=== PATIENT | female | born 1965 | race Caucasian/White ===

== ENCOUNTER 2023-09-09 11:19 | Emergency (ER) | payer OTHER, SELFPAY ==
[2023-09-09 11:21] VITALS: BP 116/89
[2023-09-09] MEDS: VALIUM 5 MG PO (12:18)
[2023-09-09] MEDS: TORADOL 15 MG IM (12:19)
[2023-09-09] MEDS: LIDOCAINE 4% PATCH 1 PATCH TOPICAL (12:19)
--- NOTE | 2023-09-09 12:19 | ED.GENMED ---
History of Present Illness
General
Chief Complaint: Back Pain
Source: patient
Time Seen by Provider: 09/09/23 11:58
Travel History
Have you had any contact with someone who has COVID-19?: No
Do you have any symptoms of coronavirus? Fever > 100 degrees, chills, cough, shortness of breath, sore throat, loss of taste or smell, muscle aches, or headache?: No
History of Present Illness
History of Present Illness:
58-year-old female with past medical history of CAD, hypertension, hyperlipidemia, MS presenting to the emergency department for evaluation of lower back pain that she admits has been going on for a few months but since Monday/ has been
having significantly increased pain, yesterday was unable to get out of bed due to the pain prompting her to come to the ER today. Patient does note she felt a little bit better this morning and her pain continues to feel improved after taking some
naproxen around 8 AM this morning. She notes a history of some longstanding back pain due to a previous left femur injury and has typically followed with a chiropractor for this. She notes that she moved to the area within the last year or so and
attributes a lot of her back pain to having to go up many stairs at the home she lives in. Denies any fevers, bowel or urinary incontinence, saddle anesthesia, focal weakness or numbness, falls or traumatic injury, abnormal weight loss, cancer
history or diabetes. Social history noncontributory. Denies history of IV drug abuse
Past History
Past History
ED Past Medical History: CAD, HTN, Hypercholesterolemia and Other (MS)
ED Past Surgical History: Cardiac, Orthopedic and Other
Social History
Tobacco: Non-smoker
Alcohol: Occasional
Drug: None
Personal: Single
Living: with family
Review of Systems
Review of Systems
All Other Systems: ROS reviewed and negative except as documented in HPI and ROS
Phy Exam
Physical Exam
Physical Exam:
GENERAL: Alert , in no apparent distress at rest but does appear uncomfortable with movement
EYE: clear conjunctiva b/l
NECK: Supple
ENT: o/p clr, mmm.
ABDOMEN: Soft, without focal tenderness, no r/g, no cvat
BACK: Limited range of motion secondary to pain, tenderness within the left paralumbar region, no midline bony tenderness, no rashes
NEUROLOGICAL: Alert and oriented, no focal neuro deficits. Patellar deep tendon reflexes intact and equal bilaterally, sensation grossly intact and equal to light touch bilateral lower extremities
SKIN: Warm and dry, skin intact.
MUSCULOSKELETAL: No edema, well perfused. EHL intact bilaterally
PSYCH: Normal and appropriate interaction.
Scores
Heart Failure Risk
Heart Failure Risk Score: Not Applicable
Heart Score for Chest Pain Patients
STEMI patient?: Not applicable
Withdrawal Assessment of Alcohol
Withdrawal Assessment Completed?: Not applicable
Course
Orders/Labs/Results
Orders:
Orders
09/09/23 12:09
Diazepam [Valium] 5 mg PO NOW STA
Ketorolac [Toradol] 15 mg IM NOW STA
Lidocaine [Lidocaine 4% Patch] 1 patch TOPICAL NOW STA
CR Lumbar Spine Comp Min 4 Vw* Urgent
Comment:
Reason For Exam: left lower back pain
Vital Signs
Initial and Last Documented VS:
Initial Vital Signs
Temp Pulse Resp BP Pulse Ox
99.4 F 95 18 116/89 97
09/09/23 11:21 09/09/23 11:21 09/09/23 11:21 09/09/23 11:21 09/09/23 11:21
Last Documented Vital Signs
Temp Pulse Resp BP Pulse Ox
99.4 F 95 18 116/89 97
09/09/23 11:21 09/09/23 11:21 09/09/23 11:21 09/09/23 11:21 09/09/23 11:21
MDM/Problems Addressed
Differential Diagnosis Includes:
Lumbar strain, spinal stenosis, sciatica, disc herniation/nerve impingement, no signs or symptoms to be suggestive of infectious etiology nor acute neurological compromise. No symptoms to be suggestive of renal/ureteral colic
MDM/Problems Addressed:
58-year-old female presenting to emergency ferment for evaluation of back pain that has been gradually worsening over the last few months, acutely worse over the last 48 hours, yesterday unable to get out of bed. Today symptoms do seem somewhat
improved. No signs or symptoms suggestive of infectious etiology or neurological compromise. Will obtain x-ray to further evaluate. Treatment with Toradol, Valium, Lidoderm patch. Reassessment following
*Radiology
Radiology exam reviewed: preliminary read by ED provider (Mild degenerative changes)
*Pulse Oximetry
Patient hypoxic: no
*Critical Care Note
Total Time (30-74mins, 75-104mins- exclusive of procedures): Not Applicable
Patient Management
Escalation/DeEscalation of care consider admission/obs:
X-ray showing mild degenerative changes but otherwise no acute fracture or malalignment. Prescriptions for muscle relaxant, steroid taper and topical Lidoderm patch. Information for outpatient follow-up provided. Stable for discharge home.
ED Attending Note
-
Portions of this chart may have been created with voice recognition software.� Occasional wrong word or��sound alike� substitutions may have occurred due to the inherent limitations of voice recognition software.
Discharge Plan
Departure
Patient Disposition: Home (Routine Discharge)
Date of Disposition: 09/09/23
Time of Disposition: 13:03
Patient with high blood pressure during this ER visit?: No
Discharge Problem:
Low back pain
Instructions: Low Back Pain (DC)
Prescriptions:
New
diazepam [Valium] 5 mg tablet
5 mg PO BID PRN (Reason: muscle spasm) Qty: 10 0RF
methylprednisolone [Medrol (Leif)] 4 mg tablets,dose pack
4 mg PO DIRECTED Qty: 21 0RF
lidocaine [Lidoderm] 5 % adhesive patch,medicated
1 patch topical DAILY Qty: 30 0RF
Referrals:
Santos Hanson MD [Family Provider] -
Dejon Sellers MD [Active] - (Pain Management - Call for appointment as needed)
Binh Elise DO [Active] - (Ortho - Call for appointment as needed)
Interventions
Interventions:
*Risk Screen - Suicide Last Done: 09/09/23 11:21
*General Assessment Last Done: 09/09/23 11:21
*Neglect/Abuse Screening Last Done: 09/09/23 11:21
ED- Fall Risk Assessment Last Done: 09/09/23 12:25
*ED COVID-19 Vaccine History Last Done: 09/09/23 11:21
*Nursing Disposition Last Done: 09/09/23 13:20
ED-Musculoskeletal Assessment Last Done: 09/09/23 12:24
Discharge Date and Time
Discharge Date/Time: 09/09/23 13:21
== END 2023-09-09 13:21 | disposition home or self-care (01) ==
LOC: EMR 11:19
PROVIDERS: EMERGENCY PHYSICIAN Emergency Medicine; FAMILY PHYSICIAN Family Medicine
DX: M54.50 Low back pain, unspecified (principal); I25.10 Atherosclerotic heart disease of native coronary artery without angina pectoris; I10 Essential (primary) hypertension; E78.00 Pure hypercholesterolemia, unspecified; G35 Multiple sclerosis; Z88.0 Allergy status to penicillin
CPT/HCPCS: 99284; 96372; 72110

== ENCOUNTER → 2023-10-09 19:16 | Outpatient (REF) | payer OTHER, SELFPAY | LOC: MRI 19:16 | PROVIDERS: ATTENDING PHYSICIAN Family Medicine; FAMILY PHYSICIAN Family Medicine | DX: G35 Multiple sclerosis (principal); G89.29 Other chronic pain; M54.50 Low back pain, unspecified | CPT/HCPCS: 72158; A9575 ==

== ENCOUNTER → 2023-11-07 11:02 | Outpatient (REF) | payer OTHER, SELFPAY | LOC: RAD 11:02 | PROVIDERS: ATTENDING PHYSICIAN Family Medicine | DX: G35 Multiple sclerosis (principal); E55.9 Vitamin D deficiency, unspecified; M85.89 Other specified disorders of bone density and structure, multiple sites | CPT/HCPCS: 77080 ==

== ENCOUNTER → 2025-02-19 13:07 | Outpatient (REF) | payer OTHER, SELFPAY | LOC: WDC 13:07 | PROVIDERS: ATTENDING PHYSICIAN Family Medicine | DX: Z12.31 Encounter for screening mammogram for malignant neoplasm of breast (principal) | CPT/HCPCS: 77063; 77067 ==

== ENCOUNTER → 2025-06-14 09:12 | Outpatient (REF) | payer OTHER, SELFPAY | LOC: RAD 09:12 | PROVIDERS: ATTENDING PHYSICIAN Physician Assistant Medical; FAMILY PHYSICIAN Family Medicine | DX: M84.352A Stress fracture, left femur, initial encounter for fracture (principal) | CPT/HCPCS: 73700 ==

== ENCOUNTER → 2025-06-14 11:52 | Outpatient (REF) | payer OTHER, SELFPAY | LOC: PAVMRI 11:52 | PROVIDERS: ATTENDING PHYSICIAN Physician Assistant Medical; FAMILY PHYSICIAN Family Medicine | DX: M87.052 Idiopathic aseptic necrosis of left femur (principal) | CPT/HCPCS: 73721 ==